=== PATIENT | male | born 1950 | race Caucasian/White ===

== ENCOUNTER 2024-11-24 12:37 | Emergency (ER) | payer MEDICARE, OTHER, SELFPAY ==
[2024-11-24 12:39] VITALS: BP 144/83
[2024-11-24 14:16] VITALS: BP 127/67; BMI 28.1
[2024-11-24 14:35] LABS: Urine Character Clear (Clear)
[2024-11-24 14:41] LABS: Hematocrit 43.1 % (39.0-52.0); Hemoglobin 14.6 g/dL (13.0-18.0); Mean Corp Hgb Conc. 33.9 g/dL (33.0-37.0); Mean Corpuscular Volume 92.9 fL (80.0-94.0); Nucleated Red Blood Cells % 0 % (-); Platelet Count 202 10^3/uL (130-400); Red Cell Dist. Width 14.8 % (11.5-14.5)
[2024-11-24 15:00] LABS: ALT (SGPT) 22 U/L (0-50); AST (SGOT) 29 U/L (17-59); Albumin 4.6 g/dl (3.5-5.0); Alkaline Phosphatase 76 U/L (38-126); Blood Urea Nitrogen 24 mg/dl (9-20); Calcium 9.7 mg/dl (8.4-10.2); Carbon Dioxide 28 mmol/L (22-30); Chloride 106 mmol/L (98-107); Estimated Creatinine Clearance 61 ml/min; Glucose 130 mg/dl (70-99); Potassium 4.8 mmol/L (3.5-5.1); Sodium 140 mmol/L (135-145); Total Protein 7.4 g/dl (6.3-8.2); eGFR > 60.00
--- NOTE | 2024-11-24 15:03 | ED.GENMED ---
History of Present Illness
<ENDER Lawrence Last Filed: 11/25/24 09:22>
General
Chief Complaint: Back Pain
Source: patient
Exam Limitations: none
Time Seen by Provider: 11/24/24 12:56
Nursing documentation reviewed up to this point in time: agreed with
History of Present Illness
History of Present Illness:
see MDM
Past History
<ENDER Lawrence Last Filed: 11/25/24 09:22>
Past History
ED Past Medical History: Cancer (Prostate), HTN and Other (gout)
ED Past Surgical History: None
Social History
Tobacco: Smoker
Review of Systems
<ENDER Lawrence Last Filed: 11/25/24 09:22>
Review of Systems
Allergies reviewed?: Yes
All Other Systems: Not applicable
Phy Exam
<ENDER Lawrence Last Filed: 11/25/24 09:22>
Physical Exam
Physical Exam:
GENERAL: Alert , in no apparent distress, very well-appearing
EYE: pupils equal and reactive
NECK: Supple
ENT: o/p clr, mmm.
CARDIAC: Regular rate and rhythm . Mild edema in the lower extremities no significant cardiac murmur
LUNGS: Clear breath sounds bilaterally, no acute respiratory distress, no wheezes/rales/rhonchi
ABDOMEN: Soft, without focal tenderness, no r/g, no cvat, normal bowel sounds
NEUROLOGICAL: Alert and oriented, no focal neuro deficits
SKIN: Warm and dry, skin intact.
MUSCULOSKELETAL: No edema, well perfused. neg karina's sign
PSYCH: Normal and appropriate interaction.
Course
<ENDER Lawrence Last Filed: 11/25/24 09:22>
Orders/Labs/Results
Orders:
Orders
11/24/24 13:48
Bladder Scan- Treatment ONCE
11/24/24 13:49
Abdominal Series [CR Obstruct Series W/pa Chest] Urgent
Comment:
Reason For Exam: constipation, trouble urinating
11/24/24 14:12
Urinalysis Reflex To Culture Urgent
Date Specimen was Collected: 11/24/24
Time Specimen was Collected: 13:57
11/24/24 14:19
CT Abd/pel Without Iv Or Oral Urgent
Comment:
Reason For Exam: urinary changes
11/24/24 14:35
CPK [Creatine Phosphokinase] Urgent
Complete Blood Count/With Diff Urgent
Comprehensive Metabolic Panel Urgent
11/24/24 16:08
MR Lumbar W/o & With Contrast Urgent
Comment: h/o prostate CA
Reason For Exam: leg weakness, gait problems, back pain, retention
Recent pill cam endoscopy?: No
11/24/24 19:48
Morphine Sulfate 4 mg IV NOW STA
11/24/24 21:06
Oxycodone [Roxicodone] 5 mg PO NOW STA
11/24/24 21:07
Tizanidine [Zanaflex] 2 mg PO NOW STA
Abnormal Lab Results
11/24/24
14:35
RBC 4.64 L 10^6/uL
(4.70-6.10)
MCH 31.5 H pg
(27.0-31.0)
RDW 14.8 H %
(11.5-14.5)
Absolute Neuts (auto) 8.5 H 10^3/uL
(1.4-6.5)
Absolute Lymphs (auto) 0.8 L 10^3/uL
(1.2-3.4)
Neutrophils % 88.5 H %
(42.2-75.2)
Lymphocytes % 8.4 L %
(20.5-51.1)
BUN 24 H mg/dl
(9-20)
Glucose 130 H mg/dl
(70-99)
Creatine Kinase 283 H U/L
(55-170)
11/24/24 14:35
11/24/24 14:35
Vital Signs
Initial and Last Documented VS:
Initial Vital Signs
Temp Pulse Resp BP Pulse Ox
36.6 C 85 16 144/83 96
11/24/24 12:39 11/24/24 12:39 11/24/24 12:39 11/24/24 12:39 11/24/24 12:39
Last Documented Vital Signs
Temp Pulse Resp BP Pulse Ox
36.9 C 58 18 121/83 100
11/24/24 14:16 11/24/24 21:14 11/24/24 21:14 11/24/24 21:14 11/24/24 21:14
<Jase Desai PA-C - Last Filed: 11/24/24 21:08>
Orders/Labs/Results
Orders:
Orders
11/24/24 13:48
Bladder Scan- Treatment ONCE
11/24/24 13:49
Abdominal Series [CR Obstruct Series W/pa Chest] Urgent
Comment:
Reason For Exam: constipation, trouble urinating
11/24/24 14:12
Urinalysis Reflex To Culture Urgent
Date Specimen was Collected: 11/24/24
Time Specimen was Collected: 13:57
11/24/24 14:19
CT Abd/pel Without Iv Or Oral Urgent
Comment:
Reason For Exam: urinary changes
11/24/24 14:35
CPK [Creatine Phosphokinase] Urgent
Complete Blood Count/With Diff Urgent
Comprehensive Metabolic Panel Urgent
11/24/24 16:08
MR Lumbar W/o & With Contrast Urgent
Comment: h/o prostate CA
Reason For Exam: leg weakness, gait problems, back pain, retention
Recent pill cam endoscopy?: No
11/24/24 19:48
Morphine Sulfate 4 mg IV NOW STA
11/24/24 21:06
Oxycodone [Roxicodone] 5 mg PO NOW STA
11/24/24 21:07
Tizanidine [Zanaflex] 2 mg PO NOW STA
Abnormal Lab Results
11/24/24
14:35
RBC 4.64 L 10^6/uL
(4.70-6.10)
MCH 31.5 H pg
(27.0-31.0)
RDW 14.8 H %
(11.5-14.5)
Absolute Neuts (auto) 8.5 H 10^3/uL
(1.4-6.5)
Absolute Lymphs (auto) 0.8 L 10^3/uL
(1.2-3.4)
Neutrophils % 88.5 H %
(42.2-75.2)
Lymphocytes % 8.4 L %
(20.5-51.1)
BUN 24 H mg/dl
(9-20)
Glucose 130 H mg/dl
(70-99)
Creatine Kinase 283 H U/L
(55-170)
11/24/24 14:35
11/24/24 14:35
Vital Signs
Initial and Last Documented VS:
Initial Vital Signs
Temp Pulse Resp BP Pulse Ox
36.6 C 85 16 144/83 96
11/24/24 12:39 11/24/24 12:39 11/24/24 12:39 11/24/24 12:39 11/24/24 12:39
Last Documented Vital Signs
Temp Pulse Resp BP Pulse Ox
36.9 C 58 18 121/83 100
11/24/24 14:16 11/24/24 21:14 11/24/24 21:14 11/24/24 21:14 11/24/24 21:14
<Winifred Cruz PA-C - Last Filed: 11/25/24 09:22>
MDM/Problems Addressed
Differential Diagnosis Includes:
see MDM
MDM/Problems Addressed:
Note:
CHIEF COMPLAINT(S)
Sciatic nerve pain and urinary retention.
HISTORY OF PRESENT ILLNESS
The patient is a 74-year-old male presenting with urinary issues.
he started with lower back pain about 2 weeks ago, atraumatic.
low back into his buttocks and upper legs, not shooting pains. he does sit a bit and that is what he thought provoked it. he went to and got prednisone for 5 days. then he saw his pcp and was prescribed tramadolw hich he was using 2 times a
day. pt deveoped constipation over the past few days with the tramadol and has needed miralax which he used recently and has now been able to have bms, today he had a noraml bm. saw his PCP 4 days ago and got another round of steroids, 40 mg x 3
days, then 30 mg x 3 days, then 20 mg x 3 days then 10 mg x 3 days. he just took his 3rd dose of 40 mg.
pt says he had been feeling some tingling in his legs but that resovled with the steroisd.
but he has some difficulty urinating x 3 days. is voiding, but feels like he is not emptying his bladder normally.
his urine is not dark, no dysuria, hematuria, fever, chills.
The patient denies any prior chronic back issues or previous magnetic resonance imaging of the back. His urinary symptoms triggered concern and prompted today�s visit and not the back pain.
he has been using a cane to walk since all of this because he sometimes feels more sturdy with it. Note:
PAST MEDICAL AND SURGICAL HISTORY
- History of prostate cancer treated surgically 50 years ago without radiation.
- Surgical history of two hernia repairs.
- Right ankle fracture 25 years ago.
PHYSICAL EXAM
- Nursing notes reviewed and vital signs reviewed.
- Neurological: Patient has full strength and sensation in the lower extremities. Rectal examination revealed good sphincter tone, reducing the suspicion of cauda equina syndrome.
- Musculoskeletal: Tenderness noted upon lying on the back but not on palpation.
- Genitourinary: Bladder scan pending to evaluate urinary retention.
PROBLEM LIST
Acute:
- Sciatic nerve pain
- Urinary retention
Chronic:
- Prostate cancer status post-surgical intervention
PLAN
- Conduct a bladder scan to evaluate for urinary retention.
- Review urine for infection.
- Consideration of an MRI to rule out spinal stenosis or other spinal cord impairments, though subject to timing and availability in the emergency department.
- Continue current pain management and re-evaluate based on diagnostic findings.
DIFFERENTIAL DIAGNOSIS
The Differential Diagnosis includes, in no particular order and is not limited to:
1. Sciatica
2. Urinary tract infection
3. Cauda equina syndrome
4. Spinal stenosis
5. Intervertebral disc herniation
6. Lumbar radiculopathy
7. Urinary retention due to medication side effects
8. Prostatitis
9. Peripheral neuropathy
10. Lumbosacral spondylosis
74-year-old male with history of prostate cancer remotely status post practice for tach to me here for feeling of urinary retention over the last couple of days. Patient says he is voiding but he cannot get his urine all the way out. He says when
he tries is not painful but it is more difficult. He has been having this ongoing back problem over the last 2 weeks which is atraumatic lumbar back pain which sometimes radiates into the upper legs. He had a little bit of numbness or tingling
associated with it as well in the beginning but has had steroids and tramadol after seeing urgent care and his family doctor, he is now on his second round of tapered steroids and he feels like that symptoms fully resolved. He is able to walk
however he has been using a cane to help him, he does not feel like he is weak while he is seated but when he is walking he feels like maybe sometimes his legs are going to give out. That is not any better or worse today but was bringing him in is
because he noticed his change in urination and called the doctor they said to come in for for an MRI. Patient has never had an MRI of his back. He also has been constipated of recent due to the tramadol and needed MiraLAX. He now has been able to
stool better and does not feel like he is constipated at this time, last bowel movement was this morning. He has not had a fever or chills or weakness. On exam the patient is very comfortable, can change positions in the bed without discomfort,
has no palpable back tenderness, normal rectal tone, 5 out of 5 lower extremity strength and sensation intact in his lower extremities, normal pulse, full painless range of motion of his legs, negative straight straight leg raise. He did have some
antalgic gait on arrival.
Initially nurse reported that his PVR was 400 which was concerning and I was considering MRI of the spine however all of the other cauda equina symptoms or signs were not present. The patient says he felt like he could pee, went to the bathroom and
voided and then had a PVR of 9 mL
As this was the only symptom for cauda equina concern now it no longer was of concern although I do feel that the patient will need an MRI as an outpatient I do not feel like he has cauda equina syndrome in the emergency department I discussed this
case with ED attending Dr. Wood who agreed. We decided that given his history of remote prostate cancer that we would check a Noncon CT of his abdomen pelvis which would help evaluate for stool burden as well as possible bony alignment etc. and
ultimately the patient would likely go home with continued MiraLAX, follow-up plan with primary for outpatient MRI
Patient reassessed at 4 PM and I watched him walk showing that his leg especially the right is buckling underneath him with a cane, he may have a radiculopathy but I cord compression. Discussed with the ED attending Dr. Jones, MRI ordered worry
about proximal weakness in the setting of waxing and waning urinary retention could be
<Winifred Cruz PA-C - Last Filed: 11/25/24 09:22>
*Pulse Oximetry
SaO2: 95
Oxygen Mode of Delivery: Room air
<Jase Desai PA-C - Last Filed: 11/24/24 21:08>
*Pulse Oximetry
Patient hypoxic: no
*Critical Care Note
Total Time (30-74mins, 75-104mins- exclusive of procedures): Not Applicable
<Jase Desai PA-C - Last Filed: 11/24/24 21:08>
Update Note
Update Note:
Assumed care of patient in shift change signout from Ruby Cruz pending MRI. MRI results reveal critical central canal stenosis at L4-5 and less severe central canal stenosis at L5-S1. Reviewed imaging findings and clinical course with
neurosurgery. At this time on reevaluation the patient has intact strength in lower extremities as well as intact sensation to the pelvis/groin and bilateral lower extremities with no deficits. He is able to ambulate with some discomfort. Repeat
postvoid residual shows less than 10 mL in the bladder. At this time imaging and case reviewed with neurosurgery, neurosurgery feels there is no urgent need for transfer given clinical presentation and he can follow-up in the office as an outpatient
ED Attending Note
<Winifred Cruz PA-C - Last Filed: 11/25/24 09:22>
-
Portions of this chart may have been created with voice recognition software.� Occasional wrong word or��sound alike� substitutions may have occurred due to the inherent limitations of voice recognition software.
Discharge Plan
Departure
Patient Disposition: Home (Routine Discharge)
Date of Disposition: 11/24/24
Time of Disposition: 21:05
Patient with high blood pressure during this ER visit?: No
Condition: Fair
Covid-19: Not Applicable
Discharge Problem:
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
Instructions: Sciatica (DC)
Prescriptions:
New
oxycodone 5 mg tablet
5 mg PO Q8H PRN (Reason: Pain) Qty: 10 0RF
No Action
atorvastatin 80 mg Tablet
80 mg PO DAILY
lisinopril-hydrochlorothiazide 20-12.5 mg Tablet
1 tab PO DAILY
aspirin [Aspir-81] 81 mg Tablet,Delayed Release (Dr/Ec)
81 mg PO DAILY
allopurinol 100 mg Tablet
100 mg PO DAILY
Referrals:
Vik Craig DO [Active, Neurosurgery] - Call in 1-3 days for appt
Jase Gregory PA-C [Family Provider, Family Practice] - Follow up in 2-3 days
Activity Restrictions/Additional Instructions:
Miralax 1-2 times daily
Colace three times daily (Or with every dose of pain medicine)
Senna OR Dulcolax 1-2 times daily as needed
Increase fluids
Follow-up with neurosurgery as soon as possible, call the office Tuesday if you cannot be seen within the next week return to the ER we will help to facilitate a follow-up
Do not hesitate to return should your pain worsen, you develop any difficulty with bowel or bladder movement, or numbness in your middle thighs
Interventions
Interventions:
*Risk Screen - Suicide Last Done: 11/24/24 12:39
*General Assessment Last Done: 11/24/24 14:16
*Neglect/Abuse Screening Last Done: 11/24/24 12:39
*ED- Fall Risk Assessment Last Done: 11/24/24 14:16
*ED COVID-19 Vaccine History Last Done: 11/24/24 14:16
*Nursing Disposition Last Done: 11/24/24 21:32
ED-Musculoskeletal Assessment Last Done: 11/24/24 14:16
Discharge Date and Time
Discharge Date/Time: 11/24/24 21:33
Print Language: NAMIBIAN
[2024-11-24 17:55] VITALS: BP 114/93
[2024-11-24 18:00] VITALS: BP 112/71
[2024-11-24] MEDS: MORPHINE SULFATE 4 MG IV (20:04)
[2024-11-24] MEDS: ZANAFLEX 2 MG PO (21:12)
[2024-11-24] MEDS: ROXICODONE 5 MG PO (21:12)
[2024-11-24 21:14] VITALS: BP 121/83
== END 2024-11-24 21:33 | disposition home or self-care (01) ==
LOC: EMR 12:37
PROVIDERS: Physician Assistant; EMERGENCY PHYSICIAN Student in an Organized Health Care Education/Training Program; FAMILY PHYSICIAN Physician Assistant Medical
DX: M54.9 Dorsalgia, unspecified (principal); R35.0 Frequency of micturition; M51.26 Other intervertebral disc displacement, lumbar region; F17.200 Nicotine dependence, unspecified, uncomplicated; I10 Essential (primary) hypertension; Z85.46 Personal history of malignant neoplasm of prostate
CPT/HCPCS: 99284; 96374; 72158; 74022; 74176; 80053; 81003; 82550; 85025; A9575